=== PATIENT | male | born 1950 | race Caucasian/White ===

== ENCOUNTER → 2018-08-06 09:55 | Outpatient (CLI) | payer MEDICARE, OTHER, SELFPAY ==
--- NOTE | 2018-08-06 09:59 | DI.RAD.S_ITS ---
PROCEDURE: XR ANKLE RT MIN 3V INDICATIONS: r ankle pain TECHNIQUE: 3 views of the ankle were acquired. COMPARISON: None. FINDINGS: Bones: No fractures or dislocations. Ankle mortise is normally aligned. No suspicious bony lesions. Chronic ossicle to the lateral malleolus suggestive of prior remote fracture. Mild midfoot degenerative sclerosis and spurring Soft tissues: No tibiotalar joint effusion. Achilles tendon appears normal. IMPRESSION: No acute fracture identified. If the patient's pain or other symptoms persist, consider further evaluation with MRI Dictated by: Tim Stuart M.D. on 08/06/2018 at 10:29 Approved by: Tim Stuart M.D. on 08/06/2018 at 10:31
== END ==
PROVIDERS: Visit Provider Physician Assistant
DX: M25.571 Pain in right ankle and joints of right foot (principal)
CPT/HCPCS: 73610

== ENCOUNTER → 2018-08-06 11:54 | Outpatient (CLI) | payer MEDICARE, OTHER, SELFPAY ==
[2018-08-06 12:20] LABS: D Dimer 747 ng/mL (<230)
== END ==
PROVIDERS: Visit Provider Physician Assistant
DX: M79.89 Other specified soft tissue disorders (principal)
CPT/HCPCS: 85379

== ENCOUNTER 2018-08-06 12:41 | Emergency (ER) | payer MEDICARE, OTHER, SELFPAY ==
[2018-08-06 13:02] VITALS: BP 134/79; PULSE 63; RESP 18; TEMP 36.7; O2SAT 97
--- NOTE | 2018-08-06 13:25 | DI.US.S_ITS ---
PROCEDURE: US PERIPH VENOUS LOW EXTREM RT INDICATIONS: RT LEG SWELLING AFTER INJURY TECHNIQUE: Real-time imaging, as well as color and pulse Doppler interrogation, were performed of the lower extremity deep veins from the inguinal ligament to the popliteal fossa. COMPARISON: None. FINDINGS: The common femoral, femoral and popliteal veins are normally compressible, and free of intraluminal thrombus. Color and pulse Doppler demonstrate normal phasic intraluminal flow. There is normal augmentation response to distal compression maneuver. There is a fluid collection in the popliteal fossa measuring 4.8 x 1.5 x 3.5 cm. There are heterogeneous internal hypoechoic components. 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 IMPRESSION: 1. No evidence of deep venous thrombosis in the right lower extremity. 3. Complex Ram's cyst. Recommend correlation with clinical symptoms. Dictated by: Juan Hernandez M.D. on 08/06/2018 at 14:19 Approved by: Juan Hernandez M.D. on 08/06/2018 at 14:23
--- NOTE | 2018-08-06 15:58 | ED.LOWEXIN ---
HPI - Extremity Injury (Lower) <Radha HolleyLASHONDA - Last Filed: 08/06/18 22:39> General Chief Complaint: Extremity Injury, Lower Stated Complaint: possible in right leg Time Seen by Provider: 08/06/18 15:29 Source: patient Mode of arrival: ambulatory Limitations: no limitations History of Present Illness HPI Narrative: A 67-year-old male with history of high cholesterol, presents to the emergency department after being seen in the walk-in clinic for right ankle swelling and pain after falling. States on July 18 he was walking down a ditch and slipped and fell and extend his legs to stop the fall, his ankle was swollen after the incident, but then he reported a airplane for a six hour trip. The patient then walked around this and he is due for multiple days and got another flight home. He was later given prednisone for another condition and this decreased swelling in his ankle. Cover the past few days he developed calf pain that is worse with movement and palpation. He was sent by the walk-in clinic for evaluation for DVT, as an ankle x-ray from the clinic was negative. Patient denies chest pain, shortness of breath, nausea, vomiting, fevers, chills, redness, or an indurated lump to leg. No history of DVT. MD complaint: ankle injury Onset (ago): week(s) Place: street/outdoors Severity: mild Severity scale (1-10): 2 Relieving factors: other (Prednisone) Exacerbating factors: weight bearing and movement Context: fall Related Data Home Medications Medication Instructions Recorded Confirmed albuterol sulfate INHALATION 07/25/18 08/06/18 aspirin 81 mg tablet,delayed 81 mg PO DAILY 07/25/18 08/06/18 release atorvastatin 20 mg tablet 20 mg PO BEDTIME 07/25/18 08/06/18 benzonatate PO 07/25/18 08/06/18 bupropion HCl PO 07/25/18 08/06/18 docusate calcium PO 07/25/18 08/06/18 fluticasone propionate NASAL 07/25/18 08/06/18 meloxicam PO 07/25/18 08/06/18 sildenafil (antihypertensive) PO 07/25/18 08/06/18 Allergies Allergy/AdvReac Type Severity Reaction Status Date / Time No Known Drug Allergies Allergy Verified 08/06/18 11:26 Review of Systems <LASHONDA Fox - Last Filed: 08/06/18 22:39> Constitutional Denies chills, Denies fever(s), Denies lethargy and Denies weakness Eyes Denies change in vision, Denies eye discharge, Denies irritation and Denies loss of vision ENT Ears, Nose, Mouth, and Throat: Denies change in voice and Denies sore throat Cardiovascular Denies chest pain, Denies irregular heart rhythm, Denies lightheadedness, Denies palpitations, Denies dyspnea, Denies dyspnea on exertion and Denies orthopnea Respiratory Denies cough, Denies dyspnea, Denies dyspnea on exertion and Denies wheezing Gastrointestinal Gastrointestinal: Denies abdominal pain, Denies change in bowel habits, Denies diarrhea, Denies nausea and Denies vomiting Musculoskeletal Denies numbness, Denies stiffness and Denies tingling Comments: Right ankle swelling, or calf soreness. Integumentary/Breasts Denies pruritus, Denies erythema, Denies rash and Denies wounds Comments: Bruising to the ankle after the incident. Neurologic Denies confusion, Denies loss of vision, Denies numbness, Denies tingling and Denies weakness Psychiatric Denies anxiety, Denies confusion, Denies depression, Denies homicidal ideation and Denies suicidal ideation Endocrine Denies palpitations Hematologic/Lymphatic Denies easy bruising Allergic/Immunologic Denies wheezing PFSH <LASHONDA Fox - Last Filed: 08/06/18 22:39> Medical History Hyperlipidemia (Chronic) Social History Smoking Status: Former smoker Social History Smoking Status: Former smoker Exam <LASHONDA Fox - Last Filed: 08/06/18 22:39> Initial Vital Signs Initial Vital Signs: Vital Signs Temperature 98.0 F 08/06/18 13:02 Pulse Rate 63 08/06/18 13:02 Respiratory Rate 18 08/06/18 13:02 Blood Pressure 134/79 08/06/18 13:02 Pulse Oximetry 97 08/06/18 13:02 Const General: cooperative and well developed Nutritional Appearance: well nourished Orientation: alert, awake, oriented x3 and not confused HENMT Head: normocephalic and atraumatic Ears: external ears normal Nose: external nose normal and No nasal discharge Mouth: oral mucosae normal and moist mucous membranes Teeth and gingiva: dentition normal Throat: tonsils normal and uvula midline Eyes General: appearance normal, both eyes and all related structures Eyelids: eyelids normal Conjunctivae: conjunctivae normal Sclera: sclerae normal Pupils: PERRL EOM: EOM intact bilaterally Chest Chest: normal inspection of the chest Resp Effort & Inspection: normal respiratory effort, able to speak in complete sentences, no respiratory distress and no use of accessory muscles Auscultation: clear to auscultation bilaterally, no rales, no rhonchi and no wheezes Cardio Rate: regular rate Rhythm: regular rhythm Heart Sounds: no click, no gallops, no murmurs and no rubs Pulses: normal peripheral pulses Back/Spine/Pelvis Back: No CVA tenderness Cervical Spine: cervical ROM normal and No pain with cervical ROM Thoracic/Lumbar Spine: thoracic and lumbar spine normal to inspection Skin General: no rashes or lesions noted, ecchymosis (noted to 3rd and 4th toes. ), No jaundice and petechiae Lesions: no lesions Rashes: no rashes Wounds: no wounds Neuro General: alert, oriented x3, gait normal and no focal motor deficits Speech: speech normal Extrem Left lower extremity: full ROM, normal capillary refill, edema (Majority of swelling noted to lateral malleolus ) Details: non-pitting and 1+ and ankle (Tenderness to lateral maleolus) Details: tenderness (Tenderness with palpation of calf, no erythema, induration, or discoloration. ) Psych Appearance: well kempt Mental Status: mental status grossly normal Attitude: cooperative Thought Content: normal Judgment: judgment good <Deja Mo MD - Last Filed: 08/08/18 12:11> Initial Vital Signs Initial Vital Signs: Vital Signs Temperature 98.0 F 08/06/18 13:02 Pulse Rate 63 08/06/18 13:02 Respiratory Rate 18 08/06/18 13:02 Blood Pressure 134/79 08/06/18 13:02 Pulse Oximetry 97 08/06/18 13:02 Course <LASHONDA Fox - Last Filed: 08/06/18 22:39> Course Narrative: Applied Arnoldo wrap to leg to decrease swelling, instructed patient to elevate leg as much as possible. Orders Ordered: ED Orders 08/06/18 13:25 US perip venous low extrem rt Stat Consultations Consultation #1: Patient staffed with Dr. Mo. Vital Signs - 8 hr 08/06/18 16:05 Pulse Rate 69 Respiratory Rate 20 Blood Pressure 138/57 L Pulse Oximetry 100 <Deja Mo MD - Last Filed: 08/08/18 12:11> Orders Ordered: ED Orders 08/06/18 13:25 US perip venous low extrem rt Stat Vital Signs - 8 hr 08/06/18 16:05 Pulse Rate 69 Respiratory Rate 20 Blood Pressure 138/57 L Pulse Oximetry 100 MDM - Extremity Injury (Lower) <LASHONDA Fox - Last Filed: 08/06/18 22:39> Differential Diagnosis Likely ankle sprain and strain Medical Records Attestation: I reviewed the patient's medical records. Lab Data Attestation: I reviewed the patient's lab results. Imaging Data Right ankle XR: Radiologist's impression: SATHYA Amos [id number] XRay Report Signed Patient: Bill Monte R#: [id number] : 1950Acct:[id number] Age/Sex: 67 / MDate of Service: 08/06/18 Loc: [facility] Accession Number: [id number] Procedure: XR ankle RT min 3V Ordering Provider: Humaira Mcgowan P.A-C PROCEDURE: XR ANKLE RT MIN 3V INDICATIONS: r ankle pain TECHNIQUE: 3 views of the ankle were acquired. COMPARISON: None. FINDINGS: Bones: No fractures or dislocations. Ankle mortise is normally aligned. No suspicious bony lesions. Chronic ossicle to the lateral malleolus suggestive of prior remote fracture. Mild midfoot degenerative sclerosis and spurring Soft tissues: No tibiotalar joint effusion. Achilles tendon appears normal. IMPRESSION: No acute fracture identified. If the patient's pain or other symptoms persist, consider further evaluation with MRI Dictated by: Tim Stuart M.D. on 08/06/2018 at 10:29 Approved by: Tim Stuart M.D. on 08/06/2018 at 10:31 Venous US: Radiologist's impression: Ultrasound Report Signed Patient: Bill Monte JMR#: [id number] : 1950Acct:[id number] Age/Sex: 67 / MDate of Service: 08/06/18 Loc: ED Accession Number: [id number] Procedure: US periph venous low extrem rt Ordering Provider: Deja Mo MD PROCEDURE: US PERIPH VENOUS LOW EXTREM RT INDICATIONS: RT LEG SWELLING AFTER INJURY TECHNIQUE: Real-time imaging, as well as color and pulse Doppler interrogation, were performed of the lower extremity deep veins from the inguinal ligament to the popliteal fossa. COMPARISON: None. FINDINGS: The common femoral, femoral and popliteal veins are normally compressible, and free of intraluminal thrombus. Color and pulse Doppler demonstrate normal phasic intraluminal flow. There is normal augmentation response to distal compression maneuver. There is a fluid collection in the popliteal fossa measuring 4.8 x 1.5 x 3.5 cm. There are heterogeneous internal hypoechoic components. 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 IMPRESSION: 1. No evidence of deep venous thrombosis in the right lower extremity. 3. Complex Ram's cyst. Recommend correlation with clinical symptoms. Dictated by: Juan Hernandez M.D. on 08/06/2018 at 14:19 Approved by: Juan Hernandez M.D. on 08/06/2018 at 14:23 MDM Narrative Medical decision making narrative: I suspect that the swelling in his ankle and calf tenderness is caused from increased edema due to muscle strain or sprain from fall and repetitive use in the past few weeks. Low suspicion for DVT due to no acute findings on ultrasound, low suspicion for fracture days due to XR results. Discussed signs of DVT with the patient and when to return to the emergency department. Discussed follow-up primary care provider. Discharge Plan Departure Patient Disposition: Home Clinical Impression: Ankle sprain and strain Discharge Date/Time: 08/06/18 16:06 Interventions: ED Discharge Assessment Last Done: 08/06/18 16:05 Instructions: DI for Deep Vein Thrombosis, DI for Ankle Sprain Activity Restrictions/Additional Instructions: Thank you for interesting with your care. As we discussed, her ultrasound was negative for a blood clot under x-ray at the walk-in clinic was negative for fracture. I believe your symptoms that are caused from an ankle sprain. Please use an Arnoldo wrap to decrease swelling and Tylenol for pain. I have attached information about blood clots, if he develops a hard indurated area, shortness of breath, chest pain please return to the emergency department. Follow up with her primary care provider as needed Prescriptions: No Action atorvastatin [Lipitor] 20 mg tablet 20 mg PO BEDTIME RF: 0 docusate calcium PO RF: 0 benzonatate PO RF: 0 albuterol sulfate Inhalation RF: 0 meloxicam PO RF: 0 bupropion HCl PO RF: 0 fluticasone propionate NASAL RF: 0 sildenafil (antihypertensive) PO RF: 0 aspirin [Adult Aspirin Regimen] 81 mg tablet,delayed release (DR/EC) 81 mg PO DAILY RF: 0
[2018-08-06 16:05] VITALS: BP 138/57; PULSE 69; RESP 20; O2SAT 100
== END 2018-08-06 16:06 | disposition home or self-care (01) ==
PROVIDERS: Emergency Provider Nurse Practitioner
DX: S93.401A Sprain of unspecified ligament of right ankle, initial encounter (principal); W19.XXXA Unspecified fall, initial encounter
CPT/HCPCS: 73610; 93971; 99282; 99283

== ENCOUNTER → 2022-07-23 13:11 | Outpatient (CLI) | payer MEDICARE, OTHER, SELFPAY ==
--- NOTE | 2022-07-23 13:14 | DI.RAD.S_ITS ---
PROCEDURE: XR CHEST 2V INDICATIONS: Cough TECHNIQUE: 2 views of the chest were acquired. COMPARISON: None. FINDINGS: Surgical changes and devices: Partially visualized right shoulder arthroplasty. Lungs and pleura: Lungs are clear. No pleural effusions or pneumothorax. Mediastinum: Mediastinal contours are normal. Heart size is mildly prominent. Bones and chest wall: No suspicious bony abnormalities. Soft tissues appear unremarkable. IMPRESSION: No acute pulmonary process. Dictated by: Clarice Finley M.D. on 07/23/2022 at 13:37 Approved by: Clarice Finley M.D. on 07/23/2022 at 13:38
== END ==
PROVIDERS: Referring Provider Nurse Practitioner Family; Visit Provider Nurse Practitioner Family
DX: R05.9 Cough, unspecified (principal)
CPT/HCPCS: 71046